=== PATIENT | female | born 1955 | race African-American/Black ===

== ENCOUNTER 2017-08-14 07:21 | Emergency (ER) | payer OTHER ==
[~2017-08-14] VITALS: Ht 162.6 cm; Wt 84.0 kg
[2017-08-14 08:31] LABS: CLARITY URINE CLEAR (CLEAR); COLOR URINE YELLOW (YELLOW); KETONES URINE NEGATIVE (NEGATIVE); LEUKOCYTE ESTERASE URINE NEGATIVE (NEGATIVE); NITRITE URINE NEGATIVE (NEGATIVE); OCCULT BLOOD URINE NEGATIVE (NEGATIVE); PH URINE 6.5 (4.5-8.0); PROTEIN URINE NEGATIVE (NEGATIVE); SPECIFIC GRAVITY URINE 1.017 (1.005-1.030); UROBILINOGEN URINE 0.2 E.U./dL (0.2-1.0)
[2017-08-14] MEDS ORDERED: IBUPROFEN 600MG TABLET PO ONE (10:15)
[2017-08-14 11:30] VITALS: BP 136/71
[2017-08-14] MEDS ORDERED: PHENAZOPYRIDINE HCL 100MG TABLET PO ONE (11:45)
== END 2017-08-14 12:25 | disposition home or self-care (01) ==
LOC: ER 07:24
DX: R30.0 Dysuria (principal); N95.2 Postmenopausal atrophic vaginitis; I10 Essential (primary) hypertension; E78.00 Pure hypercholesterolemia, unspecified; Z88.2 Allergy status to sulfonamides; Z90.710 Acquired absence of both cervix and uterus
CPT/HCPCS: 81003; 87210; 99284